=== PATIENT | male | born 1980 | race Native Hawaiian/Other Pacific Islander ===

== ENCOUNTER 2016-10-04 07:05 | Emergency (ER) | payer MEDICAID ==
[~2016-10-04] VITALS: Ht 185.4 cm; Wt 118.1 kg
[2016-10-04] MEDS ORDERED: SODIUM CHLORIDE 0.9% 1,000 ML IV ONE (07:30)
[2016-10-04 10:26] VITALS: BP 129/76
== END 2016-10-04 11:00 | disposition home or self-care (01) ==
LOC: EMS 07:08 → EDBD 07:08 → EMS 11:00
DX: R40.4 Transient alteration of awareness (principal); F12.10 Cannabis abuse, uncomplicated; F15.10 Other stimulant abuse, uncomplicated; F17.210 Nicotine dependence, cigarettes, uncomplicated
CPT/HCPCS: 36415; 80307; 82962; 96360; 99285; G0480; J7030